=== PATIENT | female | born 2000 | race Hispanic/Latino ===

== ENCOUNTER 2023-08-27 20:47 | Emergency (ER) | payer SELFPAY ==
[~2023-08-27] VITALS: Ht 167.6 cm; Wt 77.0 kg
[2023-08-27 21:32] VITALS: BP 128/73
[2023-08-27] MEDS ORDERED: ACETAMINOPHEN 325 MG/TAB PO ONE (21:35)
[2023-08-27 21:53] LABS: BASO% 0.2 % (0-3); EOS% 0.3 % (0-8); HEMATOCRIT 35.7 % (37.0-47.0); HEMOGLOBIN 11.7 g/dl (12.0-16.0); IMMATURE GRANULOCYTES 0.3 % (0.0-5.0); LYMPH% 13.7 % (15-41); MEAN CELL VOLUME 84.2 fL CALC (80.0-100.0); MEAN CORPUSCULAR HGB 27.6 pG CALC (26.0-32.0); MEAN CORPUSCULAR HGB CONC 32.8 g/dL CAL (32.0-36.0); MONO% 12.4 % (2-13); NEUT# 7.55 thou/uL (2.00-7.15); NEUT% 73.1 % (42-76); RED BLOOD COUNT 4.24 mill/uL (4.20-5.60); RED CELL DISTRI WIDTH 13.1 % (11.5-15.5)
[2023-08-27 21:53] LABS: URINE BILIRUBIN - DIPSTICK Negative (NEGATIVE); URINE BLOOD DIPSTICK Small (NEGATIVE); URINE GLUCOSE - DIPSTICK Negative (NEGATIVE); URINE KETONE Negative (NEGATIVE); URINE LEUK ESTERASE Negative (NEGATIVE); URINE NITRITE - DIPSTICK Negative (Negative); URINE PROTEIN - DIPSTICK Negative (NEG-TRACE); URINE SPECIFIC GRAVITY 1.015; URINE UROBILINOGEN - DIPSTICK 0.2 E.U./dL (0.2)
[2023-08-27 22:07] LABS: URINE COLOR Yellow; URINE SQUAMOUS EPITHELIAL CELL FEW EPI/hpf (0-FEW); URINE WBC 0-2 WBC/hpf (0-5)
[2023-08-27 22:22] LABS: CREATININE 0.6 mg/dL (0.5-1.0); POTASSIUM 3.6 mmol/l (3.5-5.1)
[2023-08-27 22:56] VITALS: BP 128/73
== END 2023-08-27 22:56 | disposition home or self-care (01) | DRG 179 ==
LOC: ED 20:47
PROVIDERS: Family Medicine
DX: U07.1 COVID-19 (principal); R50.9 Fever, unspecified; J02.9 Acute pharyngitis, unspecified; R05.9 Cough, unspecified; M79.10 Myalgia, unspecified site; R11.2 Nausea with vomiting, unspecified; R51.9 Headache, unspecified